=== PATIENT | male | born 1970 | race African-American/Black ===

== ENCOUNTER 2023-02-07 17:24 | Emergency (ER) | payer OTHER ==
[~2023-02-07] VITALS: Ht 175.3 cm; Wt 75.0 kg
[2023-02-07] MEDS ORDERED: LIDOCAINE 1% HCL (LOCAL ANESTH.) INJ 20ML MDV ID ONE (21:30)
[2023-02-07] MEDS ORDERED: CEPH500T PO (21:44)
[2023-02-07] MEDS ORDERED: MUPI2OIN2 EX (21:44)
[2023-02-07] MEDS ORDERED: IBUP1TAB5 PO (21:44)
[2023-02-07] MEDS ORDERED: GENT0.3S10 EACHEYE (21:44)
[2023-02-07] MEDS ORDERED: TETANUS-DIPTH-ACEL PERTUSSIS 0.5ML SYR Tdap IM ONE (21:45)
[2023-02-07] MEDS ORDERED: HYDROcodone-ACET 5/325MG TAB PO ONE (21:45)
[2023-02-07] MEDS ORDERED: ERYTHROMY OPTH OINT 5mg/gm 1gm or 3.5gm tube OP ONE (21:45)
[2023-02-07] MEDS ORDERED: CYCL-839 PO (21:45)
[2023-02-07] MEDS ORDERED: CEPHALEXIN 250 MG CAP PO ONE (21:45)
[2023-02-07] MEDS ORDERED: NEOMYCIN-BACITRACIN-POLYM 15GM TOP OINT TOP SCH (22:00)
[2023-02-07] MEDS ORDERED: PIPERACILLIN-TAZO 4.5GM 100 ML IV ONE (22:15)
[2023-02-07 23:47] VITALS: BP 137/90; PULSE 73; TEMP 98.2
[2023-02-07 23:53] VITALS: RESP 18; O2SAT 98
== END 2023-02-07 22:00 | disposition short-term general hospital (02) ==
LOC: ER 17:24 → EEVIPCON 17:24 → ER 22:00
DX: S02.40CA Maxillary fracture, right side, initial encounter for closed fracture (principal); S02.85XA Fracture of orbit, unspecified, initial encounter for closed fracture; S02.40EA Zygomatic fracture, right side, initial encounter for closed fracture; S02.2XXA Fracture of nasal bones, initial encounter for closed fracture; S76.012A Strain of muscle, fascia and tendon of left hip, initial encounter; S16.1XXA Strain of muscle, fascia and tendon at neck level, initial encounter; S43.402A Unspecified sprain of left shoulder joint, initial encounter; S00.83XA Contusion of other part of head, initial encounter; H57.89 Other specified disorders of eye and adnexa; H11.31 Conjunctival hemorrhage, right eye; Z79.899 Other long term (current) drug therapy; Y08.89XA Assault by other specified means, initial encounter; Y93.89 Activity, other specified; Y92.89 Other specified places as the place of occurrence of the external cause; Y99.8 Other external cause status
CPT/HCPCS: 12013; 70450; 70486; 72125; 73030; 73502; 90471; 90715; 99285; J2001; J2543